=== PATIENT | female | born 1990 | race Caucasian/White ===

== ENCOUNTER 2020-03-22 14:07 | Outpatient (CLI) | payer OTHER ==
[2020-03-22 15:03] VITALS: BP 104/76
--- NOTE | 2020-03-22 15:03 | SLEEP CARE CONSULTATION ---
Information from patient questionnaire entered by Chaya Mirza. I have reviewed and concur with the information entered by Chyaa Mirza. This document represents the service I personally performed and the decisions made by me, Marlin Aleman ARNP. History of Present Illness Service Date and Time: 03/22/2020 1407 Reason for Visit: New patient Chief Complaint: reports: Unrefreshed sleep, Snoring (this has resolved with her weight loss last year), Excessive daytime sleepiness, Fatigue. denies: Observed pauses in breathing, Frequent awakenings at night Date of Onset: Since puberty Usual bedtime: 9:00-11:00 Time it takes to fall asleep: At least an hour Snores at night: Yes (Not really, but sometimes) Observed to quit breathing while asleep: No Sleeps alone due to snoring: No Number of times waking at night: Not usually; 1-2 times Reasons for waking at night: reports: Bathroom, Other (Sometimes nightmares). denies: Choking, Snoring, Gasping for air Toss, Turn, or Twitch while sleeping: Yes Recalls having dreams: Yes Usually gets out of bed at: Naturally = noon, but lately I set an alarm and get up around 9:00 Feels refreshed in the morning: No Morning headache: No Sleepy or fatigued during the day: Yes Ever fallen asleep while driving: No Takes day naps: No Dreams during day naps: No Prior sleep studies: No Additional HPI information: I had the pleasure of seeing HORACIO WEBER today regarding the possibility of her having a sleep disorder. Her current complaints are unrefreshed sleep, excessive daytime sleepiness and fatigue. Patient mentioned to her Hand Touch Up Painter that she had some fatigue issues and she had her thyroid checked which came back normal. Her PCP followed up on the test and sent her here for testing to see if she had sleep apnea. Patient has a history of depression and feels this is the cause of her sleep problems. She states she does not generally snore since she lost 60 in 2019, but she has since regained about 15. - Parasomnia Symptoms Ever been unable to move upon waking from sleep: Yes Walks in sleep: No Talks in sleep: No Ever acted out dreams in sleep: No Ever felt weak in the knees when startled or emotional: No Bothered by creepy, crawly, restless sensations in legs: No Problems with memory or concentration: Yes (more memory but also concentration, recently started ADHD for this) Subjective Initial [place] Sleepiness Scale score: 3 (in 2020) Past Medical History Past Medical History: reports: Anemia, Anxiety, Depression, Attention deficit (The anemia is controlled with daily iron supplements, and I'm told my iron levels are very good now). denies: Hypertension, Diabetes, Arrythmia, Hypothyroidism, Mood disorder, GERD Social History The patient's occupation is unemployed. Patient is and lives in [place]. Have you smoked in the past 12 months: No Alcohol use: No Caffeine use: Yes Caffeine amount and frequency: One unsweet tea per day Family History Family history of sleep disordered breathing: No Allergies and Home Medications Drug allergies reviewed: Yes (NKDA) Home medication list reviewed: Yes Allergy and home medication list: Bupropion XL 300 mg Lamotrigine ER 100 mg Methylphenidate ER 36 mg Accutane 60 mg per day One a day Women's Fish oil 1000 mg Iron 27 mg Melatonin +5-HTP 12 mg hormonal IUD Review of Systems Weight loss over past 5 years: 40 Cardiovascular: denies: high blood pressure Gastrointestinal: denies: heartburn Neurological: denies: headaches Psychiatric: reports: Attention Deficit Hyperactivity, anxiety, depression Ear/Nose/Throat: denies: tonsillectomy, wisdom teeth removed Endocrine: reports: sluggishness (tired), increased appetite. denies: thyroid disease Musculoskeletal: reports: joint pain, back pain Immunologic: reports: rash, allergies to food or environment (sticks or trees in [place]) Physical Exam Blood Pressure: 104/76 Cuff size: wrist Heart Rate: 63 O2 Saturation: 100 Height: 5 ft 7 in Weight: 186 lb Body Mass Index: 29.1 BMI Classification: Overweight Neck circumference: 14 (inches) Nostrils: patent to airflow Turbinates: swollen Mouth and throat: narrow oropharynx Soft palate: long Hard palate: Torus palatinus Uvula visualization: 50% Mallampati Class II Tongue: normal in size Tonsils: 2+ Chin and jaw: normal size and position Neck: normal w/o lymphadenopathy or thyromegaly Heart: regular rate and rhythm Lungs: clear bilaterally Impression and Plan 1. Suspected Obstructive Sleep Apnea-Hypopnea Syndrome, as suggested by a mild snoring, unrefreshed sleep, cognitive impairment, and excessive daytime sleepiness. I reviewed with the patient that a narrow oropharynx and obesity are common predisposing factors for obstructive sleep apnea-hypopnea syndrome. I recommend proceeding to polysomnography to confirm the diagnosis and to assess severity. If the patient has significant sleep disordered breathing, a manual CPAP titration study will also be performed to find the optimal treatment pressure. I informed the patient of what the sleep studies involve and after some discussion, obtained agreement to proceed. The pathophysiology of obstructive sleep apnea-hypopnea syndrome was discussed with the patient and health risks of cardiovascular and cerebrovascular disease if not treated. AAS brochure for obstructive sleep apnea-hypopnea syndrome given and reviewed. Risks of drowsy driving discussed in detail and patient advised to avoid long distance driving and to pull over machine operator at the first sign of drowsiness. Patient agreed to plan. * Schedule polysomnography +- manual CPAP titration study and return in 1-2 weeks after the study to discuss result and initiate therapy. * Avoid long distance driving or driving when feeling sleepy. * Avoid alcohol, sedative and muscle relaxant around bedtime. * Attempt to lose weight. * Review instructions provided by trained office staff on how to prepare for the sleep study. * Return for follow-up after sleep study completed. Counseling Topics: Weight loss health impact Visit Type: In Office Time Spent with Patient (minutes): 32 Provider Statement: I spent 100% of the Face to Face Visit with the patient with greater than 50% spent counseling the patient and coordination of care.
== END 2020-03-22 14:08 | disposition home or self-care (01) ==
LOC: SC 14:07
PROVIDERS: ATTEND Nurse Practitioner Family
DX: R06.83 Snoring (principal); R41.89 Other symptoms and signs involving cognitive functions and awareness; G47.10 Hypersomnia, unspecified; E66.3 Overweight; Z68.29 Body mass index [BMI] 29.0-29.9, adult
CPT/HCPCS: 99203; 99212

== ENCOUNTER 2020-04-08 11:00 | Outpatient (CLI) | payer OTHER | END 2020-04-08 11:01 | disposition home or self-care (01) | LOC: SC 11:00 | PROVIDERS: ATTEND Nurse Practitioner Family | DX: R06.83 Snoring (principal); R53.83 Other fatigue; G47.10 Hypersomnia, unspecified; G47.8 Other sleep disorders; E66.3 Overweight; Z68.29 Body mass index [BMI] 29.0-29.9, adult | CPT/HCPCS: 95806 ==

== ENCOUNTER 2020-04-18 15:45 | Outpatient (CLI) | payer OTHER ==
--- NOTE | 2020-04-18 13:32 | SLEEP CARE CONSULTATION ---
Information from patient questionnaire entered by Maine Caldera. I have reviewed and concur with the information entered by Maine Caldera. This document represents the service I personally performed and the decisions made by me, Jonah Sharma MD, [facility]. History of Present Illness Service Date and Time: 04/18/2020 1320 Initial [place] Sleepiness Scale score: 3 (in 2020) Additional HPI information: To minimize the risk of COVID-19 exposure, the patient has requested and consented to this video visit. The patient also agrees to having her insurance billed. HPI: Ms. Hoyos returned for follow up of the home sleep apnea test (HSAT) performed on 04-08-20. The test showed no significant sleep disordered breathing or hypoxemia. However, the airflow signal was poor. Heart rate was within normal limits. The patient was informed of these findings. I explained to her that it does not look like she has obstructive sleep apnea-hypopnea. The patient reports that she does not snore. The only complaint she has is fatigue. Sleep Study - Results Type of Sleep Study: Home sleep study Prior sleep studies: No Allergies and Home Medications Drug allergies reviewed: Yes Home medication list reviewed: Yes Review of Systems Review of systems same as previous: Yes Physical Exam Vital signs obtained and entered by: N/A Height: 5 ft 7 in Impression and Plan IMPRESSION: 1. Fatigue, not explained by sleep-disordered breathing. Other sleep disorders cannot be assessed with the home sleep apnea test (HSAT). If other sleep disrupting conditions are suspected, an in-laboratory polysomnography will have to be performed. PLAN: 1. Continue to follow up with her primary care provider. 2. Return to the sleep clinic on as needed basis. Visit Type: Telehealth Video Video Type: VSee Patient Location: Home Location of Provider: Office Time Spent with Patient (minutes): 12 Provider Statement: I spent 100% of the Telehealth Video Call with the patient with greater than 50% spent counseling the patient and coordination of care.
== END 2020-04-18 15:46 | disposition home or self-care (01) ==
LOC: SC 15:45
PROVIDERS: ATTEND Internal Medicine Pulmonary Disease
DX: R06.83 Snoring (principal); G47.8 Other sleep disorders; G47.10 Hypersomnia, unspecified; R53.83 Other fatigue; E66.3 Overweight; Z68.29 Body mass index [BMI] 29.0-29.9, adult